=== PATIENT | male | born 1985 | race Hispanic/Latino ===

== ENCOUNTER 2021-12-29 17:41 | Emergency (ER) | payer OTHER ==
[2021-12-29 18:29] LABS: #Basophils 0.1 10x3/uL (0.0-0.2); #Eosinphils 0.4 10x3/uL (0.0-0.5); #Monocytes 0.5 10x3/uL (0.0-1.1); #Neutrophils 5.2 10x3/uL (1.5-8.4); %Basophils 0.7 % (0.0-2.0); %Eosinophils 4.6 % (0.0-6.0); %Lymphocytes 30.3 % (18.0-47.0); %Monocytes 5.7 % (0.0-10.0); Hemoglobin 15.1 g/dL (13.5-17.5); Mean Corpuscular HGB CONC 34.7 g/dL (32.0-36.0); Mean Corpuscular Volume 83.7 fl (81.2-95.1); Platelet Count 240 10x3/uL (150-450); RBC Distribution Width 12.7 % (11.5-14.5); White Blood Cell (WBC) Count 9.1 10x3/uL (3.5-10.5)
[2021-12-29 18:35] LABS: ALT (SGPT) 138 U/L (8-55); AST (SGOT) 73 U/L (5-34); Albumin 4.8 g/dL (3.5-5.0); Alkaline Phosphatase 79 U/L (40-110); Anion Gap 15 mmol/L (10-20); BUN (Urea Nitrogen) 16 mg/dL (8.9-20.6); Bilirubin, Total 0.6 mg/dL (0.2-1.2); Calc. Creatinine Clearance 0 mL/min (70-130); Calcium 10.3 mg/dL (7.8-10.44); Carbon Dioxide 25 mmol/L (22-29); Chloride 102 mmol/L (98-107); Estimated GFR 98; Globulin 3.3 g/dL (2.4-3.5); Glucose 94 mg/dL (70-105); Lipase 15 U/L (8-78); Potassium 3.9 mmol/L (3.5-5.1); Protein, Total 8.1 g/dL (6.0-8.3); Sodium 138 mmol/L (136-145)
== END 2021-12-29 19:20 | disposition home or self-care (01) ==
LOC: CSHERS 17:41
DX: I10 Essential (primary) hypertension (principal); R07.9 Chest pain, unspecified
CPT/HCPCS: 36415; 71045; 80053; 83605; 83690; 84484; 85025; 93005; 93010